=== PATIENT | female | born 1985 | race Caucasian/White ===

== ENCOUNTER 2019-04-30 19:08 | Emergency (ER) | payer OTHER ==
[~2019-04-30] VITALS: Ht 152.4 cm; Wt 78.9 kg
[2019-04-30 19:35] VITALS: Ht 152.4 cm; Wt 78.9 kg
[2019-04-30 20:26] VITALS: BP 127/86
== END 2019-04-30 20:28 | disposition home or self-care (01) ==
LOC: ED 19:08
DX: S05.02XA Injury of conjunctiva and corneal abrasion without foreign body, left eye, initial encounter (principal); S05.01XA Injury of conjunctiva and corneal abrasion without foreign body, right eye, initial encounter; W45.8XXA Other foreign body or object entering through skin, initial encounter; Y93.89 Activity, other specified; Y92.89 Other specified places as the place of occurrence of the external cause; Y99.8 Other external cause status